=== PATIENT | male | born 1990 | race Caucasian/White ===

== ENCOUNTER 2017-05-13 10:53 | Emergency (ER) | payer MEDICAID ==
[~2017-05-13] VITALS: Ht 177.8 cm; Wt 80.0 kg
[~2017-05-13 10:53] MED LIST: CLON-527 PO
[2017-05-13] MEDS ORDERED: clonazePAM 1mg tablet PO ONE (12:50)
[2017-05-13] MEDS ORDERED: ONDA8TAB9 PO (12:54)
[2017-05-13] MEDS ORDERED: DIPH50CA3 PO (12:54)
[2017-05-13 13:04] VITALS: BP 107/70
== END 2017-05-13 13:05 | disposition home or self-care (01) ==
LOC: ER 10:53
DX: F11.23 Opioid dependence with withdrawal (principal); F12.10 Cannabis abuse, uncomplicated; F17.200 Nicotine dependence, unspecified, uncomplicated; Z56.0 Unemployment, unspecified; Z79.899 Other long term (current) drug therapy
CPT/HCPCS: 99283

== ENCOUNTER 2017-07-12 14:46 | Emergency (ER) | payer MEDICAID ==
[~2017-07-12] VITALS: Ht 177.8 cm; Wt 69.3 kg
[~2017-07-12 14:46] MED LIST changes: +DIPH50CA3 PO; +ONDA8TAB9 PO
[2017-07-12 15:23] VITALS: BP 114/80
== END 2017-07-12 15:25 | disposition home or self-care (01) ==
LOC: ER 14:46
DX: Z02.9 Encounter for administrative examinations, unspecified (principal); F11.10 Opioid abuse, uncomplicated; F15.10 Other stimulant abuse, uncomplicated; F17.200 Nicotine dependence, unspecified, uncomplicated; Z56.0 Unemployment, unspecified
CPT/HCPCS: 99281

== ENCOUNTER 2022-12-19 16:26 | Emergency (ER) | payer MEDICAID ==
[~2022-12-19] VITALS: Ht 177.8 cm; Wt 79.5 kg
[~2022-12-19 16:26] MED LIST changes: -DIPH50CA3 PO; +DIPH50CA40 PO
[2022-12-19 16:31] VITALS: BP 130/82; PULSE 99; RESP 18; TEMP 97.8; O2SAT 98
[2022-12-19] MEDS ORDERED: VALA10002 PO (16:57)
[2022-12-19] MEDS ORDERED: IBUP-1984 PO (16:57)
[2022-12-19] MEDS ORDERED: ibuprofen tablet 400 MG TABLET PO ONE (17:00)
[2022-12-19] MEDS ORDERED: valacyclovir 500mg tablet PO SCH (17:00)
== END 2022-12-19 17:32 | disposition home or self-care (01) ==
LOC: ER 16:26
DX: B00.1 Herpesviral vesicular dermatitis (principal); F12.10 Cannabis abuse, uncomplicated; Z59.00 Homelessness unspecified; Z79.899 Other long term (current) drug therapy
CPT/HCPCS: 99283